=== PATIENT | male | born 1980 | race Caucasian/White ===

== ENCOUNTER → 2020-08-01 | Outpatient (CLI) | payer OTHER ==
--- NOTE | 2020-08-01 18:29 | XR ---
EXAMINATION TYPE: XR foot complete LT DATE OF EXAM: 08/01/2020 COMPARISON: NONE HISTORY: Foot pain TECHNIQUE: 3 views FINDINGS: There is nondisplaced oblique fracture of the proximal phalanx of the fourth toe left foot. There is no dislocation. Joint spaces are normal. Metatarsals are intact. IMPRESSION: Acute fracture of the fourth toe left foot. No significant displacement.
== END | disposition home or self-care (01) ==
LOC: RADXRMAIN 17:59
PROVIDERS: ATTEND Nurse Practitioner
DX: S92.515A Nondisplaced fracture of proximal phalanx of left lesser toe(s), initial encounter for closed fracture (principal)

== ENCOUNTER → 2020-08-17 | Outpatient (CLI) | payer OTHER ==
--- NOTE | 2020-08-18 03:47 | XR ---
EXAMINATION TYPE: XR thoracic spine complete DATE OF EXAM: 08/17/2020 COMPARISON: NONE HISTORY: Back pain TECHNIQUE: 4 views FINDINGS: Thoracic vertebra have normal alignment. Posterior elements are intact. There is no paraspi nal mass. There is no compression fracture. IMPRESSION: Negative thoracic spine exam. No fracture.
--- NOTE | 2020-08-18 03:48 | XR ---
EXAMINATION TYPE: XR lumbar spine 2 or 3V DATE OF EXAM: 08/17/2020 COMPARISON: NONE HISTORY: Back pain TECHNIQUE: 3 views FINDINGS: Lumbar vertebra have normal alignment. There is no compression fracture. Posterior elements are intact. There is slight narrowing of L5-S1 disc space. There is mild spurring at L5-S1 endplates . The sacroiliac joints are intact. IMPRESSION: Mild degenerative disc changes at L5-S1. No fracture seen.
== END | disposition home or self-care (01) ==
LOC: RADXRMAIN 16:36
PROVIDERS: ATTEND Nurse Practitioner
DX: M51.37 Other intervertebral disc degeneration, lumbosacral region (principal); M54.9 Dorsalgia, unspecified
CPT/HCPCS: 72072; 72100

== ENCOUNTER → 2020-12-15 | Outpatient (CLI) | payer OTHER ==
--- NOTE | 2020-12-15 15:26 | EEG ---
ELECTROENCEPHALOGRAM REPORT DATE OF SERVICE: 12/15/2020 PREAMBLE: This is a 40-year-old male with syncope and collapse. The patient was getting out of bed and heading to the bathroom where he collapsed and passed out. EEG FINDINGS: This is a 21-channel routine EEG recording in a patient utilizing 10/20 international system with referential and bipolar montages. Background consists of well developed, well regulated, moderate-voltage activity in 10-11 hertz alpha. Background is posterior-dominant and reactive to eye opening and closing. A photic driving response was seen with some flash frequencies. Drowsiness was seen with appearance of bilaterally symmetric theta frequency rhythm. Occasional vertex waves were seen. Deeper stages of sleep were not attained. No focal or generalized epileptiform activity was seen. IMPRESSION: This is a normal awake and drowsy EEG. No focal, lateralized or epileptiform activity was seen. MMDEVENDRAL / KENZIEN: [id number] /
== END ==
LOC: NEUROMAIN 08:00
PROVIDERS: ATTEND Family Medicine
DX: R55 Syncope and collapse (principal)
CPT/HCPCS: 95816

== ENCOUNTER → 2020-12-19 | Outpatient (CLI) | payer OTHER ==
--- NOTE | 2020-12-19 15:42 | CT ---
EXAMINATION TYPE: CT brain wo/w con DATE OF EXAM: 12/19/2020 COMPARISON: None HISTORY: Syncope and collapse CT DLP: 2371 mGycm Automated Exposure Control for Dose Reduction was Utilized. TECHNIQUE: CT scan of the head is performed with IV contrast.,CT scan of the head is performed withou t and with without and with IV Contrast, patient injected with 100 ml mL of Isovue 300. CLINICAL HISTORY: R 55 COMPARISON: None. FINDINGS: Noncontrast images show no acute intracranial hemorrhage or midline shift. The ventricles and sulci are within normal limits in size. Postcontrast images show no suspicious enhancing intrapa renchymal mass. The globes are intact and the visualized sinuses are clear. Ossific density along the anterior falx measures 13 mm in anterior to posterior dimension by 7 mm in transverse dimension by 1 cm in cephalad to caudal dimension consistent with ossification along the falx cerebri. IMPRESSION: Negative contrast enhanced head CT exam.
--- NOTE | 2020-12-26 19:10 | HM ---
HOLTER MONITOR REPORT Patient was monitored for 24 hours. Baseline rhythm is sinus mechanism with normal conduction. The average rate 70 beats per minute, minimum 38, maximum 122 beats per minute. Ventricular ectopic activity was present in the form of rare single PVCs. Supraventricular ectopic activity was present in the form of rare single PACs. Symptoms of sharp pain and tightness in the middle of the chest did not correlate with any dysrhythmia. CONCLUSION: 1. Sinus mechanism baseline rhythm. 2. Rare ventricular ectopic activity. 3. Rare supraventricular ectopic activity. 4. Symptoms did not correlate with any dysrhythmia. MMODL / IJN: [id number] /
== END | disposition home or self-care (01) ==
LOC: RADCTMAIN 11:15
PROVIDERS: ATTEND Family Medicine
DX: R55 Syncope and collapse (principal); I49.3 Ventricular premature depolarization
CPT/HCPCS: 93225; 93226; 70470; Q9967

== ENCOUNTER → 2022-03-21 | Outpatient (CLI) | payer OTHER ==
[2022-03-21 19:25] LABS: Basophils # (A) 0.03 X 10*3/uL (0.00-0.10); Basophils % (A) 0.7 %; Eosinophils # (A) 0.02 X 10*3/uL (0.04-0.35); Eosinophils % (A) 0.5 %; HCT 47.3 % (39.6-50.0); HGB 15.9 g/dL (13.0-17.0); Immature Grans, Automated 0.2 %; Lymphocytes # (A) 1.21 X 10*3/uL (0.90-5.00); Lymphocytes % (A) 28.3 %; MCH 31.4 pg (27.0-32.0); MCHC 33.6 g/dL (32.0-37.0); MCV 93.3 fL (80.0-97.0); Mean Platelet Volume 9.9 fL (9.5-12.2); Monocytes # (A) 0.38 X 10*3/uL (0.20-1.00); Monocytes % (A) 8.9 %; NRBC Per 100 WBC 0 /100 WBCS (0.0-0.0); Neutrophils # (A) 2.63 X 10*3/uL (1.80-7.70); Neutrophils % (A) 61.4 %; Platelet Count 190 X 10*3/uL (140-440); RBC 5.07 X 10*6/uL (4.40-5.60); RDW 13.3 % (11.5-14.5); WBC 4.28 X 10*3/uL (4.50-10.00)
[2022-03-21 23:36] LABS: ALT 23 U/L (10-49); AST 22 U/L (14-35); African American GFR (CKD) 108.1 (60.0-200.0); Albumin 4.6 g/dL (3.8-4.9); Albumin/Globulin Ratio 2.36 (1.60-3.17); Alkaline Phosphatase 83 U/L (41-126); BUN/Creat Ratio 9.29 Ratio (12.00-20.00); Blood Urea Nitrogen 9.4 mg/dL (9.0-27.0); Calcium 9.2 mg/dL (8.7-10.3); Chloride 104 mmol/L (96-109); Globulin 1.9 g/dL (1.6-3.3); Glucose 97 mg/dL (70-110); LDL Cholesterol,Calculated 71.8 mg/dL (0.0-131.0); Non-African American GFR(CKD) 93.3 (60.0-200.0); Potassium 4.3 mmol/L (3.5-5.5); Sodium 140 mmol/L (135-145); Total Protein 6.5 g/dL (6.2-8.2)
== END | disposition home or self-care (01) ==
LOC: LABWHC1 11:56
PROVIDERS: ATTEND Family Medicine
DX: Z00.00 Encounter for general adult medical examination without abnormal findings (principal)
CPT/HCPCS: 36415; 80053; 80061; 84439; 84443; 85025

== ENCOUNTER → 2022-07-22 | Outpatient (CLI) | payer OTHER ==
--- NOTE | 2022-07-22 13:17 | XR ---
EXAMINATION TYPE: XR shoulder complete LT DATE OF EXAM: 07/22/2022 1:07 PM INDICATION: Patient age:Male; 42 years old; Reason for study: M25.512 L shoulder pain; COMPARISON: None TECHNIQUE: The left shoulder was examined in AP, internally rotated and scapular Y projections. . FINDINGS: No evidence of acute osseous pathology, joint dislocation, or soft tissue swelling. The remaining por tions of the visualized chest are unremarkable. IMPRESSION: No acute osseous pathology.
== END | disposition home or self-care (01) ==
LOC: RADXRMAIN 12:57
PROVIDERS: ATTEND Family Medicine
DX: M25.512 Pain in left shoulder (principal)

== ENCOUNTER → 2022-09-09 | Outpatient (CLI) | payer OTHER ==
--- NOTE | 2022-09-09 13:12 | XR ---
EXAMINATION TYPE: XR KUB DATE OF EXAM: 09/09/2022 1:04 PM CLINICAL HISTORY: Right-sided pain for one year. TECHNIQUE: Two supine KUB images of the abdomen are obtained. COMPARISON: None. FINDINGS: Scattered gas is seen in non-distended small bowel loops. Gas and fecal material is seen in non-distended colon. Mild to moderate fecal prominence in the right colon. This somewhat limits eval uation for right-sided nephrolithiasis. Possible 3 mm lower pole right renal calculus just below the 12th rib. No visceromegaly. The lung bases are clear. 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 Correlate clinically. IMPRESSION: Overall nonobstructive bowel gas pattern. Mild proximal colonic fecal stasis.
[2022-09-09 21:05] LABS: Bacteria,Urine None Seen; Bilirubin,Urine Negative; Blood,Urine Negative; Color,Urine Yellow; Ketones,Urine Negative; Nitrite,Urine Negative; Specific Gravity,Urine 1.019
[2022-09-10 08:35] LABS: Appearance,Urine Clear (Clear)
== END | disposition home or self-care (01) ==
LOC: RADXRMAIN 12:51
PROVIDERS: ATTEND Family Medicine
DX: K59.89 Other specified functional intestinal disorders (principal)
CPT/HCPCS: 74018; 81001

== ENCOUNTER 2022-09-16 14:07 | Emergency (ER) | payer OTHER ==
[2022-09-16 14:12] VITALS: BP 129/81; PULSE 65; RESP 20; TEMP 98.2
[2022-09-16 14:35] LABS: Basophils % (A) 0 %; Eosinophils # (A) 0.1 k/uL (0-0.7); Eosinophils % (A) 1 %; HCT 42.1 % (39.0-53.0); HGB 14.7 gm/dL (13.0-17.5); Lymphocytes # (A) 1.6 k/uL (1.0-4.8); Lymphocytes % (A) 30 %; MCH 32.6 pg (25.0-35.0); MCV 93.1 fL (80.0-100.0); Mean Platelet Volume 7.1; Monocytes # (A) 0.3 k/uL (0-1.0); Monocytes % (A) 5 %; Neutrophils # (A) 3.3 k/uL (1.3-7.7); Neutrophils % (A) 63 %; Platelet Count 192 k/uL (150-450); RBC 4.52 m/uL (4.30-5.90); WBC 5.2 k/uL (3.8-10.6)
[2022-09-16 14:44] LABS: ALT 36 U/L (4-49); AST 35 U/L (17-59); African American GFR (CKD) >90 (>60 ml/min/1.73 sqM); Albumin 4.3 g/dL (3.5-5.0); Alkaline Phosphatase 62 U/L (38-126); Anion Gap 9 mmol/L; Blood Urea Nitrogen 15 mg/dL (9-20); Calcium 8.6 mg/dL (8.4-10.2); Carbon Dioxide 23 mmol/L (22-30); Chloride 109 mmol/L (98-107); Glucose 100 mg/dL (74-99); Magnesium 2.2 mg/dL (1.6-2.3); Non-African American GFR(CKD) 81 (>60 ml/min/1.73 sqM); Potassium 3.9 mmol/L (3.5-5.1); Sodium 141 mmol/L (137-145); Total Bilirubin 1.2 mg/dL (0.2-1.3); Total Protein 6.9 g/dL (6.3-8.2)
[2022-09-16 14:46] LABS: Partial Thromboplastin Time 25.3 sec (22.0-30.0); Prothrombin Time 10.3 sec (9.0-12.0)
--- NOTE | 2022-09-16 15:04 | XR ---
EXAMINATION TYPE: XR chest 2V DATE OF EXAM: 09/16/2022 COMPARISON: NONE HISTORY: Chest pain TECHNIQUE: Frontal and lateral views of the chest are obtained. FINDINGS: There is no focal air space opacity. No evidence for pneumothorax. No pleural effusion. The cardiac silhouette size is within normal limits. The osseous structures are grossly intact. IMPRESSION: 1. No acute cardiopulmonary process.
--- NOTE | 2022-09-16 18:41 | ED ---
Chest Pain HPI - General Chief Complaint: Chest Pain Stated Complaint: numbness, chest pain Time Seen by Provider: 09/16/22 18:40 Source: patient, RN notes reviewed Mode of arrival: ambulatory Limitations: no limitations - History of Present Illness Initial Comments: Patient is a 42-year-old male presenting for chest pain. - Related Data Allergies Allergy/AdvReac Type Severity Reaction Status Date / Time No Known Allergies Allergy Verified 09/16/22 14:12 Review of Systems ROS Statement: Those systems with pertinent positive or pertinent negative responses have been documented in the HPI. ROS Other: All systems not noted in ROS Statement are negative. Past Medical History Past Medical History: Hypertension History of Any Multi-Drug Resistant Organisms: None Reported Past Surgical History: No Surgical Hx Reported Past Psychological History: No Psychological Hx Reported Smoking Status: Current every day smoker Past Alcohol Use History: None Reported Past Drug Use History: None Reported General Exam - General Exam Comments Initial Comments: Visual Physical Exam Vital signs reviewed General: Well-appearing, nontoxic, no acute distress. Head: Normocephalic, atraumatic Eyes: PERRLA, EOMI ENT: Airway patent Chest: Nonlabored breathing Skin: No visual rash, normal skin tone Neuro: Alert and oriented 3 Musculoskeletal: No gross abnormalities Limitations: no limitations Course Vital Signs 09/16/22 14:10 Temperature 98.2 F Pulse Rate 65 Respiratory 20 Rate Blood Pressure 129/81 O2 Sat by Pulse 99 Oximetry Disposition Clinical Impression: Chest pain Disposition: LEFT AGAINST MEDICAL ADVICE Condition: Undetermined Referrals: Jim Go MD [Primary Care Provider] - 1-2 days
== END 2022-09-16 19:54 | disposition left against medical advice (07) ==
LOC: EC 14:07
DX: R07.9 Chest pain, unspecified (principal); Z53.21 Procedure and treatment not carried out due to patient leaving prior to being seen by health care provider
CPT/HCPCS: 36415; 71046; 80053; 83735; 84484; 85025; 85610; 85730; 93005; 99499

== ENCOUNTER → 2022-09-17 | Outpatient (CLI) | payer OTHER ==
--- NOTE | 2022-09-17 15:36 | CT ---
EXAMINATION TYPE: CT brain wo con DATE OF EXAM: 09/17/2022 COMPARISON: 12/19/2020 HISTORY: headache, dizziness, left sided numbness CT DLP: 1012.7 mGycm. Automated Exposure Control for Dose Reduction was Utilized. TECHNIQUE: CT scan of the head is performed without contrast. FINDINGS: There is no acute intracranial hemorrhage, mass effect, or midline shift identified. The ventricles and sulci are within normal limits in size. The globes are intact and the visualized sin uses are clear. Punctate basal ganglia close occasionally noted. IMPRESSION: No acute intracranial hemorrhage, mass effect, or midline shift is seen.
== END | disposition home or self-care (01) ==
LOC: RADCTMAIN 14:53
PROVIDERS: ATTEND Family Medicine
DX: G45.9 Transient cerebral ischemic attack, unspecified (principal)
CPT/HCPCS: 70450

== ENCOUNTER → 2022-09-20 | Outpatient (CLI) | payer OTHER ==
--- NOTE | 2022-09-20 14:39 | US ---
EXAMINATION TYPE: US carotid duplex BILAT DATE OF EXAM: 09/20/2022 COMPARISON: NONE CLINICAL INDICATION: Male, 42 years old with history of G45.9 TRANSIENT CEREBRAL ISCHEMIC ATTACK; TIA , left sided numbness, lightheaded TECHNIQUE: Carotid duplex ultrasound examination. Indirect Doppler criteria was utilized. FINDINGS: EXAM MEASUREMENTS: RIGHT: Peak Systolic Velocity (PSV) cm/sec ----- Right CCA: 110 ----- Right ICA: 92.4 ----- Right ECA: 89.0 ICA/CCA ratio: 0.84 RIGHT: End Diastole cm/sec ----- Right CCA: 27.2 ----- Right ICA: 29.2 ----- Right ECA: 19.0 LEFT: Peak Systolic Velocity (PSV) cm/sec ----- Left CCA: 130 ----- Left ICA: 93.5 ----- Left ECA: 117 ICA/CCA ratio: 0.72 LEFT: End Diastole cm/sec ----- Left CCA: 36.0 ----- Left ICA: 19.2 ----- Left ECA: 29.2 VERTEBRALS (direction of flow): Right Vertebral: Antegrade Left Vertebral: Antegrade Rhythm: Normal TRIPE WASHER NOTES: Minimal plaque noted bilateral bifurcations. No evidence of significant stenosis . Mild intimal thickening may be present diffusely. IMPRESSION: 1. Atheromatous plaquing without significant flow-limiting stenosis carotid bifurcations. Criteria for Assigning % of Stenosis / Diameter reduction (Estimation based on the indirect measurements of the internal carotid artery velocities (ICA PSV). 1. Normal (no stenosis)=ICA PSV < 125 cm/s: ratio < 2.0: ICA EDV<40 cm/s. 2. Less than 50% stenosis=ICA PSV < 125 cm/s: ratio < 2.0: ICA EDV<40 cm/s. 3. 50 to 69% stenosis=ICA PSV of 125 to 230 cm/s: ration 2.0 ? 4.0: ICA EDV 40-100 cm/s. 4. Greater than 70% stenosis to near occlusion= ICA PSV > 230 cm/s: ratio > 4.0: ICA EDV > 100 cm/s. 5. Near occlusion= ICA PSV velocities may be low or undetectable: variable ratio and ICA EDV. 6. Total occlusion=unable to detect flow.
== END | disposition home or self-care (01) ==
LOC: RADUSWWP 13:38
PROVIDERS: ATTEND Family Medicine
DX: I65.23 Occlusion and stenosis of bilateral carotid arteries (principal)
CPT/HCPCS: 93880

== ENCOUNTER → 2023-05-27 | Outpatient (CLI) | payer OTHER ==
--- NOTE | 2023-05-27 13:01 | XR ---
EXAMINATION TYPE: XR hand complete bilateral DATE OF EXAM: 05/27/2023 12:17 PM CLINICAL INDICATION:Male, 42 years old with history of R22.33 welling mass lump; pain due to arthriti s and carpal tunnel swelling per patient x1 year COMPARISON: None TECHNIQUE: 3 views of each hand, 6 images total FINDINGS: Osseous mineralization appears appropriate. No destructive bony lesion. No acute fracture or dislocat ion. Joint spaces are maintained. Generally mild osteoarthritic changes bilaterally. Tiny radiodensit y, likely calcification over foreign body, projects in association with the soft tissues at the dorsa l medial aspect of the right second digit near the level of the proximal interphalangeal joint. Unrem arkable soft tissues otherwise. IMPRESSION: 1. No evidence of an acute bony abnormality of the bilateral hands. 2. Mild degenerative changes laterally. 3. Tiny radiodensity, likely calcification over foreign body, associated with the right second digit .
== END | disposition home or self-care (01) ==
LOC: RADXRMAIN 11:56
PROVIDERS: ATTEND Family Medicine
DX: R22.33 Localized swelling, mass and lump, upper limb, bilateral (principal)

== ENCOUNTER → 2024-01-17 | Outpatient (CLI) | payer OTHER ==
[2024-01-17 15:10] LABS: Basophils # (A) 0.05 X 10*3/uL (0.00-0.10); Basophils % (A) 0.9 %; Eosinophils # (A) 0.05 X 10*3/uL (0.04-0.35); Eosinophils % (A) 0.9 %; HCT 46.8 % (39.6-50.0); HGB 16.4 g/dL (13.0-17.0); Lymphocytes # (A) 1.51 X 10*3/uL (0.90-5.00); Lymphocytes % (A) 25.9 %; MCH 33.1 pg (27.0-32.0); MCV 94.4 FL (80.0-97.0); Mean Platelet Volume 9.5 FL (9.5-12.2); Monocytes # (A) 0.52 X 10*3/uL (0.20-1.00); Monocytes % (A) 8.9 %; NRBC Per 100 WBC 0 X 10*3/uL (0.00-0.01); Neutrophils # (A) 3.68 X 10*3/uL (1.80-7.70); Neutrophils % (A) 63.1 %; Platelet Count 205 X 10*3/uL (140-440); RBC 4.96 X 10*6/uL (4.40-5.60); RDW 13.4 % (11.5-14.5); WBC 5.83 X 10*3/uL (4.50-10.00)
[2024-01-17 15:30] LABS: Erythrocyte Sedimentation Rate 4 mm/Hr (0-15)
[2024-01-17 23:51] LABS: ALT 40 U/L (10-49); AST 35 U/L (14-35); Albumin 4.7 g/dL (3.8-4.9); Albumin/Globulin Ratio 1.96 Ratio (1.60-3.17); Alkaline Phosphatase 84 U/L (41-126); Blood Urea Nitrogen 9.4 mg/dL (9.0-27.0); C Reactive Protein <0.30 mg/dL (0.00-0.80); Calcium 9.1 mg/dL (8.7-10.3); Carbon Dioxide 23.8 mmol/L (21.6-31.8); Chloride 104 mmol/L (96-109); Chol/HDL Ratio 3.77 Ratio; Globulin 2.4 g/dL (1.6-3.3); Glucose 105 mg/dL (70-110); LDL Cholesterol,Calculated 104.5 mg/dL (0.0-131.0); Potassium 4.2 mmol/L (3.5-5.5); Rheumatoid Factor, Qnt <15 IU/mL (0-15); Sodium 140 mmol/L (135-145); Total Bilirubin 1.1 mg/dL (0.3-1.2); Total Protein 7.1 g/dL (6.2-8.2); Uric Acid 5.4 mg/dL (3.7-8.7)
== END | disposition home or self-care (01) ==
LOC: LABWHC1 09:53
PROVIDERS: ATTEND Family Medicine
CPT/HCPCS: 36415; 80053; 80061; 82306; 84443; 84550; 85025; 85652; 86038; 86140; 86431

== ENCOUNTER 2024-08-06 10:44 | Emergency (ER) | payer OTHER ==
--- NOTE | 2024-08-06 11:42 | ED ---
Abdominal Pain HPI - General Chief Complaint: Abdominal Pain Stated Complaint: bilat flank pain Time Seen by Provider: 08/06/24 11:39 Source: patient, RN notes reviewed Mode of arrival: ambulatory Limitations: no limitations - History of Present Illness Initial Comments: 44-year-old male presenting for right flank pain x 4 days. States he was sent from urgent care to rule out kidney stones. Reports an intermittent, crampy pain in the right flank. He does endorse vomiting yesterday however is currently asymptomatic. Tolerating orals well today. Denies urinary symptoms, penile discharge, constipation, or diarrhea. States kidney stones were found incidentally on his scan previously however he has not not had any issues since. States he has a history of hypertension and bradycardia. - Related Data Allergies Allergy/AdvReac Type Severity Reaction Status Date / Time No Known Allergies Allergy Verified 09/16/22 14:12 Review of Systems ROS Statement: Those systems with pertinent positive or pertinent negative responses have been documented in the HPI. ROS Other: All systems not noted in ROS Statement are negative. Past Medical History Past Medical History: Hypertension History of Any Multi-Drug Resistant Organisms: None Reported Past Surgical History: No Surgical Hx Reported Past Psychological History: No Psychological Hx Reported Smoking Status: Current every day smoker Past Alcohol Use History: None Reported Past Drug Use History: None Reported General Exam Limitations: no limitations General appearance: alert, in no apparent distress Head exam: Present: atraumatic, normocephalic, normal inspection Respiratory exam: Present: normal lung sounds bilaterally. Absent: respiratory distress, wheezes, rales, rhonchi, stridor Cardiovascular Exam: Present: regular rate, normal rhythm, normal heart sounds. Absent: systolic murmur, diastolic murmur, rubs, gallop, clicks GI/Abdominal exam: Present: soft, normal bowel sounds. Absent: distended, tenderness, guarding, rebound, rigid Back exam: Absent: CVA tenderness (R), CVA tenderness (L) Neurological exam: Present: alert, oriented X3 Psychiatric exam: Present: normal affect, normal mood Skin exam: Present: warm, dry, intact, normal color. Absent: rash Course Vital Signs 08/06/24 10:50 Temperature 98.2 F Pulse Rate 59 L Respiratory 18 Rate Blood Pressure 117/87 O2 Sat by Pulse 98 Oximetry Medical Decision Making - Medical Decision Making Was pt. sent in by a medical professional or institution (LATASHA Shen, COMPOSITE ASSEMBLER, urgent care, hospital, or snf...) When possible be specific @ -Sent by urgent care to rule out kidney stones Did you speak to anyone other than the patient for history (EMS, parent, family, police, friend...)? What history was obtained from this source @ -No Did you review nursing and triage notes (agree or disagree)? Why? @ -I reviewed and agree with nursing and triage notes Were old charts reviewed (outside hosp., previous admission, EMS record, old EK G, old radiological studies, urgent care reports/EKG's, snf records)? Report findings @ -No old charts were reviewed Differential Diagnosis (chest pain, altered mental status, abdominal pain women, abdominal pain men, vaginal bleeding, weakness, fever, dyspnea, syncope, headache, dizziness, GI bleed, back pain, seizure, CVA, palpatations, mental health, musculoskeletal)? @ -Differential Abdominal Pain Men: Appendicitis, cholecystitis, diverticulosis, ischemic bowel, pancreatitis, hepa titis, UTI, gastroenteritis, AAA, incarcerated hernia, bowel obstruction, constipation, inflammatory bowel, hepatitis, peptic ulcer disease, splenic infarction, perforated viscus, testicular torsion, this is not meant to be an all-inclusive list EKG interpreted by me (3pts min.). @ -None X-rays interpreted by me (1pt min.). @ -None done CT interpreted by me (1pt min.). @ -CT abdomen pelvis reveals bilateral nephrolithiasis measuring up to 6 mm, no suspicious ureteral stone or hydronephrosis, moderate circumferential bladder wall thickening, incidental transient small bowel to small bowel intussusception in the left lower quadrant, length is 2.7 cm, hepatomegaly 21.3 U/S interpreted by me (1pt. min.). @ -None done What testing was considered but not performed or refused? (CT, X-rays, U/S, labs)? Why? @ -None What meds were considered but not given or refused? Why? @ -Declines pain meds. Did you discuss the management of the patient with other professionals (professionals i.e. LATASHA Shen, COMPOSITE ASSEMBLER, lab, RT, psych nurse, social worker health services, crisis counselor, teacher, learning officer, watch caser)? Give summary @ -I discussed case and CT results with on-call general surgeon Dr. Strong who states the standard of care at this point is to observe patient in the ED for 3 hours, then repeat CT with oral contrast. He also states he will come by to evaluate the patient himself in approximately 10 minutes. Was smoking cessation discussed for >3mins.? @ -No Was critical care preformed (if so, how long)? @ -No Were there social determinants of health that impacted care today? How? (Homelessness, low income, unemployed, alcoholism, drug addiction, transportation, low edu. Level, literacy, decrease access to med. care, longterm, rehab)? @ -No Was there de-escalation of care discussed even if they declined (Discuss DNR or withdrawal of care, Hospice)? DNR status @ -No What co-morbidities impacted this encounter? (DM, HTN, Smoking, COPD, CAD, Cancer, CVA, ARF, Chemo, Hep., AIDS, mental health diagnosis, sleep apnea, morbid obesity)? @ -None Was patient admitted / discharged? Hospital course, mention meds given and route, prescriptions, significant lab abnormalities, going to OR and other pertinent info. @ -Discharge. 44-year-old male presenting for right flank pain x 4 days. Patient is afebrile with no CVA tenderness. He is well-appearing, nontoxic. Declining pain meds at this time. Lab work and urinalysis unremarkable. CT abdomen pelvis reveals incidental transient small bowel to small bowel intussusception in the left lower quadrant measuring 2.7 cm. I discussed case and CT results with on-call general surgeon Dr. Strong who states the standard of care at this point is to observe patient in the ED for 3 hours, then repeat CT with oral contrast. He also states he will come by to evaluate the patient himself in approximately 10 minutes. I updated patient on the results/plan and he states he has to leave because he has some important things to take care of today. I discussed in detail the risks of intussusception if left untreated including . Patient verbalizes understanding. Patient is of sound mind and has the right to leave AGAINST MEDICAL ADVICE at this time. Case was discussed with my ED attending Dr. Cline. Undiagnosed new problem with uncertain prognosis? @ -No Drug Therapy requiring intensive monitoring for toxicity (Heparin, Nitro, Insulin, Cardizem)? @ -No Were any procedures done? @ -No Diagnosis/symptom? @ -Intussusception, right flank pain Acute, or Chronic, or Acute on Chronic? @ -Acute Uncomplicated (without systemic symptoms) or Complicated (systemic symptoms)? @ -Complicated Side effects of treatment? @ -No Exacerbation, Progression, or Severe Exacerbation? @ -No Poses a threat to life or bodily function? How? (Chest pain, [place], SD, pneumonia, PE, COPD, DKA, ARF, appy, cholecystitis, CVA, Diverticulitis, Homicidal, Suicidal, threat to staff... and all critical care pts) @ -Yes - Lab Data Result diagrams: 08/06/24 11:53 08/06/24 11:53 Lab Results 08/06/24 08/06/24 08/06/24 Range/Units 11:53 11:53 11:53 WBC 6.05 (4.50-10.00) 10*3/uL RBC 5.05 (4.40-5.60) 10*6/uL Hgb 16.6 (13.0-17.0) g/dL Hct 47.6 (39.6-50.0) % MCV 94.3 (80.0-97.0) fL MCH 32.9 H (27.0-32.0) pg MCHC 34.9 (32.0-37.0) g/dL Plt Count 203 (140-440) 10*3/uL MPV 9.2 L (9.5-12.2) fL Immature Gran % (Auto) 0.2 % Neutrophils % 65.9 % Lymphocytes % 26.0 % Monocytes % 7.1 % Eosinophils % 0.3 % Basophils % 0.5 % Immature Gran # 0.01 (0.00-0.04) 10*3/uL Neutrophils # 3.99 (1.80-7.70) 10*3/uL Lymphocytes # 1.57 (0.90-5.00) 10*3/uL Monocytes # 0.43 (0.20-1.00) 10*3/uL Eosinophils # 0.02 L (0.04-0.35) 10*3/uL Basophils # 0.03 (0.00-0.10) 10*3/uL Sodium 140 (137-145) mmol/L Potassium 4.5 (3.5-5.1) mmol/L Chloride 107 (98-107) mmol/L Carbon Dioxide 22 (22-30) mmol/L Anion Gap 11 mmol/L BUN 13 (9-20) mg/dL Creatinine 0.84 (0.66-1.25) mg/dL Est GFR (CKD-EPI)AfAm >90 (>60 ml/min/1.73 sqM) Est GFR (CKD-EPI)NonAf >90 (>60 ml/min/1.73 sqM) Glucose 102 H (74-99) mg/dL Plasma Lactic Acid Amilcar 1.4 (0.7-2.0) mmol/L Calcium 9.5 (8.4-10.2) mg/dL Total Bilirubin 1.5 H (0.2-1.3) mg/dL AST 31 (17-59) U/L ALT 40 (4-49) U/L Alkaline Phosphatase 69 (38-126) U/L Total Protein 7.8 (6.3-8.2) g/dL Albumin 4.9 (3.5-5.0) g/dL Urine Color Urine Appearance (Clear) Urine pH (5.0-8.0) Ur Specific [place] (1.001-1.035) Urine Protein (Negative) Urine Glucose (UA) (Negative) Urine Ketones (Negative) Urine Blood (Negative) Urine Nitrite (Negative) Urine Bilirubin (Negative) Urine Urobilinogen (<2.0) mg/dL Ur Leukocyte Esterase (Negative) 08/06/24 Range/Units 13:30 WBC (4.50-10.00) 10*3/uL RBC (4.40-5.60) 10*6/uL Hgb (13.0-17.0) g/dL Hct (39.6-50.0) % MCV (80.0-97.0) fL MCH (27.0-32.0) pg MCHC (32.0-37.0) g/dL Plt Count (140-440) 10*3/uL MPV (9.5-12.2) fL Immature Gran % (Auto) % Neutrophils % % Lymphocytes % % Monocytes % % Eosinophils % % Basophils % % Immature Gran # (0.00-0.04) 10*3/uL Neutrophils # (1.80-7.70) 10*3/uL Lymphocytes # (0.90-5.00) 10*3/uL Monocytes # (0.20-1.00) 10*3/uL Eosinophils # (0.04-0.35) 10*3/uL Basophils # (0.00-0.10) 10*3/uL Sodium (137-145) mmol/L Potassium (3.5-5.1) mmol/L Chloride (98-107) mmol/L Carbon Dioxide (22-30) mmol/L Anion Gap mmol/L BUN (9-20) mg/dL Creatinine (0.66-1.25) mg/dL Est GFR (CKD-EPI)AfAm (>60 ml/min/1.73 sqM) Est GFR (CKD-EPI)NonAf (>60 ml/min/1.73 sqM) Glucose (74-99) mg/dL Plasma Lactic Acid Am[place]car (0.7-2.0) mmol/L Calcium (8.4-10.2) mg/dL Total Bilirubin (0.2-1.3) mg/dL AST (17-59) U/L ALT (4-49) U/L Alkaline Phosphatase (38-126) U/L Total Protein (6.3-8.2) g/dL Albumin (3.5-5.0) g/dL Urine Color Colorless Urine Appearance Clear (Clear) Urine pH 7.0 (5.0-8.0) Ur Specific [place] 1.012 (1.001-1.035) Urine Protein Negative (Negative) Urine Glucose (UA) Negative (Negative) Urine Ketones Negative (Negative) Urine Blood Negative (Negative) Urine Nitrite Negative (Negative) Urine Bilirubin Negative (Negative) Urine Urobilinogen <2.0 (<2.0) mg/dL Ur Leukocyte Esterase Negative (Negative) Disposition Clinical Impression: Intussusception Disposition: LEFT AGAINST MEDICAL ADVICE Condition: Undetermined Referrals: Jim Go MD [Primary Care Provider] - 1-2 days Time of Disposition: 14:36
[2024-08-06 12:03] LABS: Basophils # (A) 0.03 10*3/uL (0.00-0.10); Basophils % (A) 0.5 %; Eosinophils # (A) 0.02 10*3/uL (0.04-0.35); Eosinophils % (A) 0.3 %; HCT 47.6 % (39.6-50.0); HGB 16.6 g/dL (13.0-17.0); Lymphocytes # (A) 1.57 10*3/uL (0.90-5.00); MCH 32.9 pg (27.0-32.0); MCHC 34.9 g/dL (32.0-37.0); MCV 94.3 fL (80.0-97.0); Mean Platelet Volume 9.2 fL (9.5-12.2); Monocytes # (A) 0.43 10*3/uL (0.20-1.00); Monocytes % (A) 7.1 %; Neutrophils # (A) 3.99 10*3/uL (1.80-7.70); Neutrophils % (A) 65.9 %; Platelet Count 203 10*3/uL (140-440); RBC 5.05 10*6/uL (4.40-5.60); RDW 13.5 % (11.5-14.5); WBC 6.05 10*3/uL (4.50-10.00)
[2024-08-06 12:14] LABS: ALT 40 U/L (4-49); AST 31 U/L (17-59); African American GFR (CKD) >90 (>60 ml/min/1.73 sqM); Albumin 4.9 g/dL (3.5-5.0); Alkaline Phosphatase 69 U/L (38-126); Anion Gap 11 mmol/L; Blood Urea Nitrogen 13 mg/dL (9-20); Calcium 9.5 mg/dL (8.4-10.2); Carbon Dioxide 22 mmol/L (22-30); Chloride 107 mmol/L (98-107); Glucose 102 mg/dL (74-99); Non-African American GFR(CKD) >90 (>60 ml/min/1.73 sqM); Potassium 4.5 mmol/L (3.5-5.1); Sodium 140 mmol/L (137-145); Total Bilirubin 1.5 mg/dL (0.2-1.3); Total Protein 7.8 g/dL (6.3-8.2)
--- NOTE | 2024-08-06 13:04 | CT ---
EXAMINATION TYPE: CT abdomen pelvis wo con DATE OF EXAM: 08/06/2024 12:15 PM COMPARISON: None. CLINICAL INDICATION: Male, 44 years old with history of right flank pain, kidney stone suspected; Rt flank pain TECHNIQUE: CT abdomen pelvis wo con;Sagittal and coronal reconstructions were performed. CT DLP: 529.1 mGycm, Automated exposure control for dose reduction was used. FINDINGS: LOWER CHEST: Unremarkable ABDOMEN LIVER: Liver enlarged measuring 21.3 cm GALLBLADDER AND BILE DUCTS: Unremarkable. PANCREAS: Unremarkable. SPLEEN: Unremarkable. ADRENAL GLANDS: Unremarkable. KIDNEYS AND URETERS: 4 nonobstructing stones within the left kidney measuring up to 4 mm. Larger 6 mm nonobstructing stone right kidney. No hydronephrosis or ureteral stone seen. PELVIS BLADDER: Moderate circumferential bladder wall thickening. REPRODUCTIVE: Prostate gland upper limits of normal in size. Central prosthetic calcifications. Moder ate circumferential bladder wall thickening. ABDOMEN & PELVIS STOMACH AND BOWEL: Tiny hiatal hernia. No evidence of bowel obstruction. Incidental small bowel to sm all bowel intussusception at the left paramedian lower quadrant for span of 2.7 cm suggesting a trans ient finding. Normal appendix. Mild stool burden. Mild sigmoid diverticulosis. No pericolonic inflamm atory change. PERITONEUM/RETROPERITONEUM: No evidence of pneumoperitoneum or free fluid. VASCULATURE: No evidence of aortic aneurysm. MUSCULOSKELETAL: T11-T12 disc osteophyte complex causing mild spinal canal narrowing. Transitional kelechi mbosacral segment, lumbarized S1. Moderate to severe degenerative disc disease L5-S1 with disc ossifi ed complex. Moderate bilateral neural foraminal stenosis here. LYMPH NODES: No gross evidence for lymphadenopathy. SOFT TISSUE/ABDOMINAL WALL: Unremarkable IMPRESSION: 1. Bilateral nephrolithiasis measuring up to 6 mm. No suspicious ureteral stone or hydronephrosis is seen. 2. Moderate circumferential bladder wall thickening could reflect chronic bladder hypertrophy or cyst itis. Clinically correlate. 3. Suspect an incidental transient small bowel to small bowel intussusception in the left lower quadr ant. The length of segment involved (2.7 cm long) generally suggests a transient finding. 4. Hepatomegaly at 21.3 cm. [facility], Workstation: [employer], 08/06/2024 1:02 PM
[2024-08-06 13:51] LABS: Appearance,Urine Clear (Clear); Bilirubin,Urine Negative (Negative); Blood,Urine Negative (Negative); Color,Urine Colorless; Glucose,Urine (UA) Negative (Negative); Ketones,Urine Negative (Negative); Leukocyte Esterase,Urine Negative (Negative); Nitrite,Urine Negative (Negative); Protein,Urine Negative (Negative); Specific Gravity,Urine 1.012 (1.001-1.035); Urobilinogen,Urine <2.0 mg/dL (<2.0)
[2024-08-06 14:42] VITALS: BP 122/78; PULSE 66; RESP 16; TEMP 98
== END 2024-08-06 14:42 | disposition left against medical advice (07) ==
LOC: EC 10:44
DX: K56.1 Intussusception (principal); R10.31 Right lower quadrant pain; R10.32 Left lower quadrant pain; I10 Essential (primary) hypertension; F17.200 Nicotine dependence, unspecified, uncomplicated; Z53.29 Procedure and treatment not carried out because of patient's decision for other reasons
CPT/HCPCS: 36415; 74176; 80053; 81003; 83605; 85025; 99284

== ENCOUNTER 2024-08-06 15:54 | Emergency (ER) | payer OTHER ==
[2024-08-06] MEDS ORDERED: IOPAMIDOL CONTRAST (ORAL USE) VIAL PO PRN (16:27)
--- NOTE | 2024-08-06 16:48 | ED ---
Back Pain HPI - General Chief Complaint: Back Pain/Injury Stated Complaint: Back Pain Time Seen by Provider: 08/06/24 16:04 Source: patient, RN notes reviewed Mode of arrival: ambulatory Limitations: no limitations - History of Present Illness Initial Comments: This is a 44-year-old male who presents to the emergency department for right flank pain. States that it has been going on for 4 days. He was originally sent over here earlier today from urgent care to rule out a kidney stone. His imaging revealed an intussusception and he was advised to undergo a CT scan with oral contrast. However, he had to sign out AMA due to other obligations. He then returned now to have the CT scan with oral contrast done. States that he continues to have the dull ache in his right flank region, but it has not worsened. MD Complaint: back pain - Related Data Allergies Allergy/AdvReac Type Severity Reaction Status Date / Time No Known Allergies Allergy Verified 09/16/22 14:12 Review of Systems ROS Statement: Those systems with pertinent positive or pertinent negative responses have been documented in the HPI. ROS Other: All systems not noted in ROS Statement are negative. Past Medical History Past Medical History: Hypertension History of Any Multi-Drug Resistant Organisms: None Reported Past Surgical History: No Surgical Hx Reported Past Psychological History: No Psychological Hx Reported Smoking Status: Current every day smoker Past Alcohol Use History: None Reported Past Drug Use History: None Reported General Exam Limitations: no limitations General appearance: alert, in no apparent distress Head exam: Present: atraumatic, normocephalic, normal inspection Respiratory exam: Present: normal lung sounds bilaterally. Absent: respiratory distress, wheezes, rales, rhonchi, stridor Cardiovascular Exam: Present: regular rate, normal rhythm GI/Abdominal exam: Present: soft, normal bowel sounds. Absent: distended, tenderness, guarding, rebound, rigid Back exam: Present: CVA tenderness (R). Absent: CVA tenderness (L) Neurological exam: Present: alert, oriented X3, CN II-XII intact Psychiatric exam: Present: normal affect, normal mood Skin exam: Present: warm, dry, intact, normal color. Absent: rash Course Vital Signs 08/06/24 08/06/24 08/06/24 15:55 19:07 19:42 Temperature 97.5 F L 98 F 98.2 F Pulse Rate 77 63 56 L Respiratory 18 16 16 Rate Blood Pressure 147/98 155/88 150/87 O2 Sat by Pulse 97 98 98 Oximetry Medical Decision Making - Medical Decision Making This is a 44 year old male who presents to the emergency department for back pain. Was pt. sent in by a medical professional or institution? @ -No Did you speak to anyone other than the patient for history? @ -No Did you review nursing and triage notes? @ -Yes, and I agree, it is accurate with regards to the patient's symptoms. Were old charts reviewed? @ -CBC, CMP, and urinalysis from earlier today which were unremarkable. CT scan of the abdomen and pelvis from earlier today demonstrating bilateral nephrolithiasis without ureteral stone or hydronephrosis. He also has moderate circumferential bladder wall thickening suggestive of chronic bladder hypertrophy or cystitis as well as an incidental transient small bowel to small bowel intussusception in the left lower quadrant most suggestive of a transient finding. Differential Diagnosis? @ -Differential Back Pain: Strain, zoster, cauda equina syndrome, epidural abscess, vertebral osteomyelitis, discitis, fracture, subluxation, disc herniation, DJD, spinal stenosis, dissection, AAA, pancreatitis, peptic ulcer disease, pyelonephritis, kidney stone, this is not meant to be an all-inclusive list. EKG interpreted by me (3pts min.)? @ -Not obtained X-rays interpreted by me (1pt min.)? @ -Not obtained CT interpreted by me (1pt min.)? @ -CT scan of the abdomen and pelvis obtained. My interpretation identifies no bowel wall thickening or free air. U/S interpreted by me (1pt. min.)? @ -Not obtained What testing was considered but not performed? (CT, X-rays, U/S, labs)? Why? @ -None What meds were considered but not given? Why? @ -None Did you discuss the management of the patient with other professionals? @ -No Did you reconcile home meds? @ -No Was smoking cessation discussed for >3mins.? @ -No Was critical care preformed (if so, how long)? @ -No Were there social determinants of health that impacted care today? How? (Homelessness, low income, unemployed, alcoholism, drug addiction, transportation, low edu. Level, literacy, decrease access to med. care, group home, rehab)? @ -No Was there de-escalation of care discussed even if they declined? (Discuss DNR or withdrawal of care, Hospice)? @ -No What co-morbidities impacted this encounter? (DM, HTN, Smoking, COPD, CAD, Cancer, CVA, Hep., AIDS, mental health diagnosis, sleep apnea, morbid obesity)? @ -None Was patient admitted / discharged? @ -Discharged. CT scan of the abdomen and pelvis from earlier today demonstrated concerns for an intussusception in the small bowel. He was advised to undergo a repeat CT scan with oral contrast, however he had to sign out AMA with plans to return later. He did return as instructed and the CT scan of the abdomen and pelvis with oral contrast was obtained. This demonstrated resolution of prior small bowel intussusception without any other acute findings. Laboratory studies from a few hours prior were unremarkable and we did not repeat these. Patient discharged home in stable condition and advised to follow-up with his PCP. Case discussed with ED attending Dr. Zaldivar. Return precautions reviewed in depth, the patient is instructed to return to the emergency department with any new, worsening, or concerning symptoms. Patient verbalized understanding. Undiagnosed new problem with uncertain prognosis? @ -None Drug Therapy requiring intensive monitoring for toxicity (Heparin, Nitro, Insulin, Cardizem)? @ -None Were any procedures done? @ -None Diagnosis/symptom? @ -Back pain, abnormal CT Acute, or Chronic, or Acute on Chronic? @ -Acute Uncomplicated (without systemic symptoms) or Complicated (systemic symptoms)? @ -Uncomplicated Side effects of treatment? @ -None Exacerbation, Progression, or Severe Exacerbation] @ -Not applicable Poses a threat to life or bodily function? @ -No - Radiology Data Radiology results: report reviewed, image reviewed Disposition Clinical Impression: Back pain, Abnormal CT scan Disposition: HOME SELF-CARE Condition: Stable Instructions (If sedation given, give patient instructions): Flank Pain (ED), Back Pain (ED) Additional Instructions: Return to the emergency department with any new, worsening, or concerning symptoms. Alternate with ibuprofen and Tylenol as needed for pain relief. Follow up with your primary care provider in 1-2 days. Is patient prescribed a controlled substance at d/c from ED?: No Referrals: Jim Go MD [Primary Care Provider] - 1-2 days Time of Disposition: 19:25
[2024-08-06 19:08] VITALS: RESP 16
--- NOTE | 2024-08-06 19:13 | CT ---
EXAMINATION TYPE: CT abdomen pelvis wo con DATE OF EXAM: 08/06/2024 6:45 PM COMPARISON: 08/06/2024 CLINICAL INDICATION: Male, 44 years old with history of Abdominal pain, back pain; Intussusception on CT earlier today. TECHNIQUE: Axial CT abdomen pelvis wo con;Sagittal and coronal reformats were created on a separate workstation. Contrast used: mL of , (none if empty) Oral contrast used: with Oral Contrast (none if empty) CT DLP: 528.7 mGycm, Automated exposure control for dose reduction was used. LOWER CHEST: Unremarkable ABDOMEN LIVER: Similarly enlarged measuring 21.3 cm GALLBLADDER AND BILE DUCTS: Unremarkable. PANCREAS: Unremarkable. SPLEEN: Unremarkable. ADRENAL GLANDS: Unremarkable. KIDNEYS AND URETERS: Similar, 4 nonobstructing stones within the left kidney measuring up to 4 mm. La rger 6 mm nonobstructing stone right kidney. No hydronephrosis or ureteral stone seen. PELVIS BLADDER: Moderate circumferential bladder wall thickening. REPRODUCTIVE: Prostate gland upper limits of normal in size. Central prosthetic calcifications. Moder ate circumferential bladder wall thickening. ABDOMEN & PELVIS STOMACH AND BOWEL: Oral contrast extends to the descending colon. Tiny hiatal hernia. No evidence of bowel obstruction. Incidental small bowel to small bowel intussusception at the left paramedian lower quadrant for span of 2.7 cm suggesting a transient finding. Normal appendix. Mild stool burden. Mild sigmoid diverticulosis. No pericolonic inflammatory change. PERITONEUM/RETROPERITONEUM: No evidence of pneumoperitoneum or free fluid. VASCULATURE: No evidence of aortic aneurysm. MUSCULOSKELETAL: T11-T12 disc osteophyte complex causing mild spinal canal narrowing. Transitional kelechi mbosacral segment, lumbarized S1. Moderate to severe degenerative disc disease L5-S1 with disc ossifi ed complex. Moderate bilateral neural foraminal stenosis here. LYMPH NODES: No gross evidence for lymphadenopathy. SOFT TISSUE/ABDOMINAL WALL: Unremarkable IMPRESSION: 1. Resolution of prior small bowel small bowel intussusception . The remainder of the exams date of exam. 2. Bilateral nonobstructing renal calculi.. 3. Mild circumferential bladder wall thickening correlate for cystitis.. 4. Hepatomegaly [facility], , 08/06/2024 7:11 PM
[2024-08-06 20:03] VITALS: BP 150/87; PULSE 56; TEMP 98.2
== END 2024-08-06 19:42 | disposition home or self-care (01) ==
LOC: EC 15:54
DX: M54.9 Dorsalgia, unspecified (principal); R93.41 Abnormal radiologic findings on diagnostic imaging of renal pelvis, ureter, or bladder; F17.200 Nicotine dependence, unspecified, uncomplicated
CPT/HCPCS: 74176; 99283